=== PATIENT | male | born 1985 | race Caucasian/White ===

== ENCOUNTER 2022-08-13 10:36 | Emergency (ER) | payer OTHER ==
[~2022-08-13] VITALS: Ht 177.8 cm; Wt 101.5 kg
[2022-08-13] MEDS ORDERED: FENO30CA PO (10:51)
[2022-08-13] MEDS ORDERED: BUPIVACAINE HCL 0.5% 10ML VIAL SC ONE (13:10)
[2022-08-13] MEDS ORDERED: LIDOCAINE W/EPINEPHRINE 1% 20ML VIAL SC ONE (13:10)
[2022-08-13] MEDS ORDERED: BOOSTRIX/ADACEL VACCINE (DIPHTH/PERTUSS/ACELL/TETANUS) 0.5ML SYR IM.IMMUN ONE (13:50)
[2022-08-13 14:11] VITALS: BP 140/81
== END 2022-08-13 14:20 | disposition home or self-care (01) ==
LOC: M ED 10:36
DX: S00.83XA Contusion of other part of head, initial encounter (principal); S61.511A Laceration without foreign body of right wrist, initial encounter; S60.511A Abrasion of right hand, initial encounter; W11.XXXA Fall on and from ladder, initial encounter; Y92.094 Garage of other non-institutional residence as the place of occurrence of the external cause; Y93.89 Activity, other specified; E78.5 Hyperlipidemia, unspecified